=== PATIENT | female | born 1985 | race Caucasian/White ===

== ENCOUNTER 2019-10-16 16:34 | Emergency (ER) | payer OTHER ==
[~2019-10-16] VITALS: Ht 160 cm; Wt 145.1 kg
[2019-10-16 16:45] VITALS: Ht 160 cm; Wt 145.1 kg
[2019-10-16] MEDS ORDERED: TIROSINT13 MCG (16:46)
[2019-10-16] MEDS ORDERED: VOLTAREN75 MG PO (18:34)
[2019-10-16] MEDS ORDERED: METHOCARBAMOL500 MG PO (18:34)
[2019-10-16 19:00] VITALS: BP 177/100
== END 2019-10-16 19:00 | disposition home or self-care (01) ==
LOC: D.ER 16:34
DX: M54.2 Cervicalgia (principal); V89.2XXA Person injured in unspecified motor-vehicle accident, traffic, initial encounter; Y93.9 Activity, unspecified; Y92.9 Unspecified place or not applicable; R51 Headache; M25.519 Pain in unspecified shoulder; E03.9 Hypothyroidism, unspecified